=== PATIENT | male | born 1965 | race Caucasian/White ===

== ENCOUNTER 2017-06-19 20:45 | Emergency (ER) | payer BC ==
[~2017-06-19] VITALS: Ht 172.7 cm; Wt 95.3 kg
[2017-06-20] MEDS ORDERED: ZANTAC300 MG PO (05:19)
[2017-06-20] MEDS ORDERED: KETO10TA2 PO (05:19)
[2017-06-20] MEDS ORDERED: CYCLOBENZAPRINE10 MG PO (05:19)
== END 2017-06-20 05:29 | disposition home or self-care (01) ==
LOC: ER 20:45
DX: B34.9 Viral infection, unspecified (principal); E86.0 Dehydration